=== PATIENT | female | born 1985 | race Asian ===

== ENCOUNTER → 2019-07-03 08:04 | Outpatient (BNVA) | payer BC, SELFPAY | PROVIDERS: Visit Provider Obstetrics & Gynecology | DX: Z34.90 Encounter for supervision of normal pregnancy, unspecified, unspecified trimester (principal) | CPT/HCPCS: 84315; 87081 ==

== ENCOUNTER → 2019-07-10 08:39 | Outpatient (BNVA) | payer BC, SELFPAY | PROVIDERS: Visit Provider Obstetrics & Gynecology | DX: Z01.89 Encounter for other specified special examinations (principal) | CPT/HCPCS: 84315 ==

== ENCOUNTER → 2019-07-17 10:04 | Outpatient (BNVA) | payer BC, SELFPAY | PROVIDERS: Visit Provider Obstetrics & Gynecology | DX: Z01.89 Encounter for other specified special examinations (principal) | CPT/HCPCS: 84315 ==

== ENCOUNTER 2019-07-19 02:08 | Inpatient (IN) | payer BC, SELFPAY ==
[2019-07-19] VITALS (58 sets, daily range): BP systolic 0–164; BP diastolic 0–92; PULSE 88–124; RESP 16–18; TEMP 36.3–36.9; O2SAT 97–100; BMI 46.7
--- NOTE | 2019-07-19 02:25 | PC.NURSE ---
MD at bedside to assess patient, updated on vitals. MD orders CMP and urine protein/creatinine ratio.
--- NOTE | 2019-07-19 02:42 | P.HP_ITS ---
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 Presents to labor and delivery with uterine contractions states she had onset of irregular uterine contractions afternoon of 07/18/2019 contractions became regular strong approximately every 4 minutes at approximately 2200 hrs. 07/18/2019. Presents to labor and delivery with strong uterine contractions by palpation every 3 to 4 minutes category 1 tracing. This has been uncomplicated she did conceived via IUI. She did have some anemia was treated with ferrous sulfate 325 3 times daily. No other medical issues has had excessive weight gain of approximately 55 pounds. She denies any headaches visual changes right upper quadrant and midepigastric pain she has had some swelling in her lower extremities left greater than right. Group B strep is negative Abnormal 1 hour GTT and first trimester 3-hour GTT was normal at 28 weeks her 1 hour GTT was 120 hemoglobin 12.4 hematocrit 40.6 Blood type O+ antibody screen was negative Review of Systems General: Reports: 10 or more systems reviewed and unremarkable except in HPI and below Const: Denies: fever, chills or body aches Eyes: Denies: change in vision Card: Reports: swelling of feet/ankles; Denies: chest pain, palpitations or irregular heart rhythm Resp: Denies: shortness of breath or non-productive cough GI: Reports: abdominal pain (Uterine contractions every 4 minutes); Denies: nausea or vomiting : Denies: flank pain, difficulty urinating, urinary frequency, urinary urgency or decreased urine ouput Musc: Reports: extremity swelling; Denies: back pain or extremity pain Skin/Breast: Denies: rash Neuro: Denies: headache Psych: Denies: anxiety or depression Endo: Denies: excessive urination or excessive thirst Bhavin/Lymph: Denies: easy bruising or easy bleeding Medications/Allergies Allergies Allergy/AdvReac Type Severity Reaction Status Date / Time No Known Allergies Allergy Unverified 06/19/19 08:09 [facility] 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 Morbidly obese gravid female Skin without rashes unremarkable HEENT grossly normal Neck no masses Lungs clear to auscultation Heart regular sinus rhythm Abdomen obese gravid palpable uterine contractions moderate to strong. Baby is vertex by Tuan's estimated weight 8 and three-quarter pounds Pelvic examination: Deferred by me cervical exam per labor nurse 80%/4/0 station/vertex bulging membranes Extremities grossly intact mild tibial edema, left greater than right Neurologic exam ambulatory gait normal patella DTR 2/4 no clonus Psych oriented to time space and circumstance A&P Assessment and plan (1) Term : Status: Acute Code(s): Z34.90 - Encounter for supervision of normal , unspecified, unspecified trimester (2) Uterine contractions: G1 at 39+ weeks admitted in early labor at 4 cm dilated uterine contractions described as strong every 4 minutes. Will admit for expected vaginal delivery patient did have 1 isolated systolic blood pressure in the 160s we will watch her blood pressure closely check her CBC metabolic profile and urine protein/creatinine ratio discussed with patient that should her blood pressure remained elevated may require intervention for same. As long as her blood pressure is unremarkable and reassuring tracing we will allow intermittent monitoring and ambulation. Discussed aspects of labor and delivery understands cannot guarantee outcome patient does desire cord blood and tissue collection will attempt to do so. All questions have been answered patient has been counseled. Status: Acute (3) Morbid obesity: Status: Acute Code(s): E66.01 - Morbid (severe) obesity due to excess calories (4) Infertility: Status: Acute Attestations Medical Necessity Statement*: Labor term Coding Level of Care Code Acute Senior Management Consultant for Chg Fwd Diagnoses Term Z34.90 Uterine contractions Morbid obesity E66.01 Infertility
--- NOTE | 2019-07-19 03:03 | PC.NURSE ---
Dr. Pandya at bedside to place FSE.
--- NOTE | 2019-07-19 03:06 | PC.NURSE ---
patient turned to hands and knees due to FHTs
--- NOTE | 2019-07-19 03:07 | PC.NURSE ---
MD orders for 0.25mg of Terbutaline be given subq STAT
--- NOTE | 2019-07-19 03:08 | PC.NURSE ---
called c/s due to FHTs
--- NOTE | 2019-07-19 03:09 | PC.NURSE ---
Wilfredo Schneider notified of stat c/s being called by Dr. Pandya
[2019-07-19 03:11] LABS: Basophils % 0.3 %; Eosinophils # 0.1 10^3/uL (0.0-0.8); Eosinophils % 0.9 %; Hematocrit 39.8 % (37.0-47.0); Hemoglobin 12.8 g/dL (11.5-15.3); Lymphocytes # 1.9 10^3/uL (0.8-4.8); Lymphocytes % 15.6 %; Mean Corpuscular HGB Conc 32.2 g/dL (30.0-36.0); Mean Corpuscular Hemoglobin 24.5 pg (28.0-34.0); Mean Corpuscular Volume 76.1 fL (81-99); Mean Platelet Volume 9.6 fL (7.4-10.4); Monocytes # 0.7 10^3/uL (0.2-0.9); Neutrophils # 9.1 10^3/uL (1.8-7.7); Neutrophils % 76.6 %; Nucleated Red Blood Cells % 0 %; Platelet Count 311 10^3/cmm (130-400); Red Blood Count 5.23 10^6/uL (4.1-5.3); Red Cell Distribution Width 15.6 % (12.1-15.1); White Blood Count 11.9 10^3/uL (4.0-10.0)
--- NOTE | 2019-07-19 03:11 | PC.NURSE ---
0.25mg Terbutaline given subq in left upper arm by Purnima Goodwin RN. Verified with MD and second RN Jeanne Veliz RN
[2019-07-19 03:27] LABS: Alanine Aminotransferase < 5 U/L (0-33); Albumin Level 3.1 g/dL (3.5-5.2); Alkaline Phosphatase 124 IU/L (35-105); Anion Gap 18.9 (5-19); Aspartate Amino Transferase 10 U/L (0-32); Blood Urea Nitrogen 7 mg/dL (6-20); Calcium 9.3 mg/dL (8.5-10.5); Carbon Dioxide 20 mmol/L (22-29); Chloride 99 mmol/L (98-107); Globulin 3.4 g/dL (1.3-4.6); Glucose 106 mg/dL (65-115); Potassium 3.9 mmol/L (3.5-5.1); Sodium 134 mmol/L (136-145); Total Bilirubin 0.3 mg/dL (0.15-1.2); Total Protein 6.5 g/dL (6.6-8.7)
--- NOTE | 2019-07-19 03:30 | PC.NURSE ---
O2 removed at this time
--- NOTE | 2019-07-19 03:30 | PC.NURSE ---
Decelertion occured during FSE palcement by Dr. Pandya, FHTs noted to be in the 50's and 60's, IV fluids then hung and bolused, O2 applied via tight facemask at 10L/min. patient was repositioned to hands and knees and order was given by Dr. Pandya to give terbutaline 0.25mg subq STAT. Terbutaline was given at 0311 and abdomen soft to palpate. FHts then noted to be in the 140's.
[2019-07-19 03:49] LABS: Creatinine Urine, Random 51 mg/dL (28-217); Microalbumin Random Urine 10 ug/dL (0-20)
[2019-07-19 03:51] LABS: Microalbum Creatinine Ratio Ur 196 mg/dL (0-20)
--- NOTE | 2019-07-19 04:25 | PM.OBGYPN ---
SOCCER PLAYER Subjective Subjective: Interval history: decel/bradycardia Patient had spontaneous rupture of membranes clear fluid. Due to patient's body habitus unable to monitor heart rate with patient on left side. Asked by nursing service to apply a scalp lead. Scalp lead was applied followed by decrease in heart rate to a low point of 50s total deceleration approximately 2 minutes patient was laying on left side rapidly removed to the right side and then placed in knee-chest position. Given O2 by mask and IV fluid bolus. Due to the depth of the bradycardia to the 50s terbutaline 0.25 mg was given and and with patient in knee-chest presentation the head was elevated. Cervix was complete in 4 to time. Rapid response to subcutaneous terbutaline resulted in elevation heart rate into the 120s with excellent recovery good [id number] and good reactivity. Patient was kept in knee-chest position for approximately 20 minutes to allow good recovery. Then slowly turned back to right lateral position doing well at this time at this time heart rate is category 1 with baseline 135. Patient's uterine contractions have resumed with no further decelerations. We will continue to labor Medications: Medication Review Details: terbutaline 0.25 mg subq Labor: Dilation (cm): 4 Effacement (%): 100 Station: -2 Amniotic Membrane Status: Ruptured Contraction Frequency: 4 Contraction Duration: 60 Contraction Pattern: Regular Contraction Intensity: Moderate Status: Category ll Vitals/I&O/Wt Last Vital Signs Pulse 98 07/19/19 04:17 BP 137/67 07/19/19 04:17 Weight last 48 hrs Weight 131.995 kg Data : 07/19/19 02:45 07/19/19 02:45 Attestations Medical Necessity Statement*: no change Coding Level of Care Code Acute Department Store Manager for Shelia Schuler
--- NOTE | 2019-07-19 04:35 | P.ANESASSM_ITS ---
Pre-Anesthetic Assessment Pre-Anesthetic Assessment: Height/Weight: Height 1.68 m Weight 131.995 kg Pulse BP 98 0/0 07/19/19 04:17 07/19/19 04:31 Proposed Procedure: lumbar epidural Familial anesthetic complications: none Was Beta Joanna taken within 24 hours: N/A Last Intake: 20:00 Social: Social History: No alcohol Exam: Pre-Anes Outpt Exam: alert, oriented x 3, clear to auscultation bilaterally and regular rate & rhythm Airway: Submandibular: WNL Cervical ROM: WNL MP: 2 Pulmonary: Pulmonary: None reported CV/HEM: CV/HEM: None reported : : None reported Hepatic: Hepatic: None reported GI: GI: GERD (controlled with protonix) Metabolic: Metabolic: Morbid obesity Musc/skel: Musc/skel: None reported Neuropsych: Neuropsych: None reported Anesthetic Plan: ASA status: 3 Anesthesia: Regional (specify below) (lumbar epidural catheter ) Risk of > 500 ml blood loss (7ml/kg in children): No Data Anesthesia CBC & Chem 7: 07/19/19 02:45 07/19/19 02:45 Other Labs: Laboratory Results - last 48 hr 07/19/19 07/19/19 07/19/19 02:45 02:45 02:45 WBC 11.9 H RBC 5.23 Hgb 12.8 Hct 39.8 MCV 76.1 L MCH 24.5 L MCHC 32.2 RDW 15.6 H Plt Count 311 MPV 9.6 Neut % (Auto) 76.6 Lymph % (Auto) 15.6 [place] % (Auto) 6.0 Eos % (Auto) 0.9 Baso % (Auto) 0.3 Neut # (Auto) 9.1 H Lymph # (Auto) 1.9 [place] # (Auto) 0.7 Eos # (Auto) 0.1 Baso # (Auto) 0.0 Nucleated RBC % (auto) 0 Nucleated RBCs # 0.0 Sodium 134 L Potassium 3.9 Chloride 99 Carbon Dioxide 20 L Anion Gap 18.9 BUN 7 Creatinine 0.4 L GFR Calculation 185.0 H Glucose 106 Calcium 9.3 Total Bilirubin 0.3 AST 10 ALT < 5 Alkaline Phosphatase 124 H Total Protein 6.5 L Albumin 3.1 L Globulin 3.4 Ur Random Microalbumin 10 Urine Creatinine 51 Microalb/Creat Ratio 196 H Cardiac Studies: No Data to Display
--- NOTE | 2019-07-19 05:30 | ANES.PROC ---
Anesthesia Procedures Procedure/Date: 07/19/19 lumbar epidural Epidural: Time Out Performed: Yes Consents Signed: Procedure Consent Consent: from patient, risks and benefits reviewed and patient agrees to proceed Lumbar Level: L3-L4 Epidural position: sitting Epidural procedure: sterile prep of area, 1% lidocaine to numb the area (5cc), 18 g needle, negative for paresthesia passed, neg for paresthesia, test dose given, 1.5% xylocaine 1:200k epi (3cc), 0.2% Ropivacaine bolus ml (5cc via epidural pump prior to continous infusion beginning), placed PCEA, no systemic response, sterile dressing applied, L.U.D. no apparent complications and 0.2% Ropiavacaine @ mls/hr (13cc/hr) Additional Comments: PIOTR at 7cm. catheter 12cm at skin. no complications. patient is comfortable with contractions
[2019-07-19] MEDS: lactated ringers 1,000 ML 999 ML IV ×4 (05:31→17:05)
[2019-07-19 05:37] LABS: Urine Creatinine 51 mg/dL (28-217)
[2019-07-19 05:38] LABS: UPRO/UCREAT Ratio 0.57 mg/mg CR; Urine Protein Random 29 mg/dL
[2019-07-19] MEDS: dextrose 5%-lactated ringers 1,000 ML 125 ML IV ×2 (07:00→18:43)
--- NOTE | 2019-07-19 07:39 | PC.NURSE ---
new FSE ground pad placed and heart tones back to 140's
[2019-07-19] MEDS: terbutaline 1 mg/mL INJ 0.25 MG SUBCUT ×2 (07:59→08:17)
[2019-07-19] MEDS: metoclopramide 5 mg/mL SDV 2 mL 10 MG IVP (08:28)
[2019-07-19] MEDS: famotidine 20 mg/2 mL INJ IVP (08:28)
[2019-07-19] MEDS: citric acid-sodium citrate 30 mL UDC PO (08:28)
[2019-07-19] MEDS: ondansetron 2 mg/ML SDV 2 mL 4 MG IVP (08:28)
--- NOTE | 2019-07-19 10:02 | PM.OP ---
Operative Report Date of procedure: July 19, 2019 Pre-op Diagnosis: Intrauterine at term Pre-op Diagnosis: Intrauterine term Nonreassuring heart rate tracing Arrest of dilation Maternal obesity Post-op diagnosis: same (Same plus occiput posterior presentation) Post-op Diagnosis: Occiput posterior presentation Nuchal cord x2 Procedure Done: Viable female Apgars 9 9 delivered from straight OP presentation in the mid pelvis. Nuchal cord x2. Specimens removed/disposition: Placenta and membranes removed from uterus Pathology: none sent Surgeon: Jasper Pandya Hopper Attendant: Rigoberto Girard Anesthesia: Epidural Estimated blood loss (mL): 600 IV fluids (mL): 1,200 Urine output (mL): 200 Urine output: Urine output clear Complications: None Findings: Normal-looking uterus tubes and ovaries. delivered from occiput posterior position mid pelvis Nuchal cord x2 Condition: stable Disposition: floor Brief History: 34-year-old G1 now P1 lady admitted in early labor at 4 cm agnes every 4 minutes initially category 1 tracing. Early in her stage I of labor she did have a brief deceleration approximately 2 minutes down to 60s/70s recovered with position change to knee-chest and subcu terbutaline. Tracing then reactive category 1 allowed to labor progressed to approximately 8 cm with epidural anesthesia and approximately 8 cm had another bradycardic episode to 70s/80s with position changes had recovery. And was allowed to continue labor. Unfortunately after approximately 3 hours she had another significant deceleration down to the 50s 60s with recovery up to 60s/70s still 8 cm dilated and upon my examination was vertex was still in the mid pelvis with moderate It. Given subcu terbutaline and position changes. Unfortunately due to her epidural could not go any chest satiated then was kept prone in Trendelenburg with recovery of the heart rate to the 130s 140s good variability At this point she had had 3 total bradycardic episodes to somewhat significant and had not changed her cervix from 8 cm in over 3 hours. I did discuss above with patient and her my recommendations were that we proceed immediately with section as best possible outcome for baby mom and dad did agree permits were signed and he OR crew contacted. Procedure: Patient had been a counseled. She was then taken to the operating room just off the labor and delivery suite transferred the operating table left lateral tilt epidural was dosed with continuous monitoring via scalp lead after appropriate level of anesthesia was achieved scalp lead was removed. Garnica catheter was in place sequentials were on abdomen was prepped and draped. Timeout was performed. Patient received Ancef 2 g IV and after timeout was performed transverse incision was made in the lower abdomen carried down through the subcutaneous tissue fascia was nicked in the midline and extended bluntly. Vascular decisionally the peritoneum was then opened bluntly and extended the bladder blade retractor was placed and the vesicouterine peritoneum identified transverse incision was made transverse lower uterine segment incision was then scored in the uterus and extended bluntly. Placenta was anterior and required going through the lower portion of the placenta. We were however able to place the precipitator operator's hand into the lower uterine segment/vagina and was able to extract the vertex from an OP position the mid pelvis. With delivery of the head there is nuchal cord x2 reduced. Baby was then delivered with fundal pressure and delayed cord clamping of 1 minute obtained the baby underwent suctioning on the field. Cord clamped and cut and handed off to attendant pediatric provider. Cord bloods were obtained cord blood banking attempted unsuccessful length the cord was sent for tissue at parents request. Placenta was removed from the uterus uterus was brought to the exterior wiped clean of clot and debris. Lower uterine segment was then repaired in 2 layers with 0 Vicryl with a running locking stitch and imbricating stitch. [id number] 2-0 Vicryl placed as necessary. Pelvis was irrigated uterus was replaced pelvic gutters were irrigated lower uterine segment was inspected and was hemostatic. At this point time further irrigation was performed peritoneum was then closed with running 2-0 Vicryl. Fascia closed with a running 0 Vicryl. The subcu/Imelda's fascia closed with 2-0 Vicryl. Skin was then infiltrated with mixture 1% lidocaine and 0.5% Marcaine with epi skin was closed with too dry sterile dressing was applied. Vagina was expressed cleaned of clot. Procedure was then terminated patient was transferred preoperatively to [facility] underwent initial recovery in the OR under nurse anesthesia guidance. Was then taken to the floor for care. No complications anticipate discharge home 8 POD 2 or early POD 3. We will plan staple removal in the office in 7 days.
--- NOTE | 2019-07-19 10:14 | P.PCNOB_ITS ---
Delivery Note: Date of delivery: July 19, 2019 Estimated blood loss (mL): 600 Pre-Delivery Course: Patient had recurrent bradycardic episodes and arrested dilation for 3+ hours to 8 cm at that time she had another bradycardic episode for 9 minutes recovered was taken to the OR for See dictated note. Delivery: Primary low transverse Post-Delivery Status: To the floor stable A&P Assessment and plan (1) Term : Status: Acute Code(s): Z34.90 - Encounter for supervision of normal , unspecified, unspecified trimester (2) Uterine contractions: Status: Acute (3) Morbid obesity: Status: Acute Code(s): E66.01 - Morbid (severe) obesity due to excess calories (4) Infertility: Status: Acute Coding Level of Care Code Acute Strip Mine Supervisor for Chg Fwd Diagnoses Term Z34.90 Uterine contractions Morbid obesity E66.01 Infertility
[2019-07-19] MEDS: sodium chloride 0.9% 500 ML 999 ML IV (16:40)
[2019-07-19] MEDS: acetaminophen 325 mg Tablet 650 MG PO ×2 (16:53→21:30)
[2019-07-19] MEDS: ketorolac 30 mg/mL INJ IVP ×2 (16:53→21:30)
[2019-07-19] MEDS: miSOPROStol 200 mcg Tablet 800 MCG PR (16:54)
[2019-07-19] MEDS: ferrous sulfate EC 325 mg Tablet PO (18:43)
[2019-07-19] MEDS: docusate sodium 100 mg Capsule PO (18:43)
[2019-07-19 22:00] LABS: Hematocrit 30.2 % (37.0-47.0); Hemoglobin 9.7 g/dL (11.5-15.3); Mean Corpuscular HGB Conc 32.1 g/dL (30.0-36.0); Mean Corpuscular Hemoglobin 24.9 pg (28.0-34.0); Mean Corpuscular Volume 77.4 fL (81-99); Mean Platelet Volume 9.4 fL (7.4-10.4); Platelet Count 230 10^3/cmm (130-400); Red Cell Distribution Width 15.8 % (12.1-15.1); White Blood Count 11.1 10^3/uL (4.0-10.0)
[2019-07-20] MEDS: dextrose 5%-lactated ringers 1,000 ML 125 ML IV (03:09)
[2019-07-20] MEDS: acetaminophen 325 mg Tablet 650 MG PO ×4 (05:22→22:28)
[2019-07-20] MEDS: ketorolac 30 mg/mL INJ IVP (05:22)
[2019-07-20 06:04] VITALS: BP 118/72; PULSE 100; RESP 16
--- NOTE | 2019-07-20 07:56 | PC.NURSE ---
Updated Dr. Pandya on patient status. Orders received to discontinue carter and PIID IV. Patient may remove dressing when she gets up to shower this morning.
[2019-07-20] MEDS: docusate sodium 100 mg Capsule PO ×2 (08:36→17:15)
[2019-07-20] MEDS: prenatal vitamin Capsule 1 CAP PO (08:36)
[2019-07-20 11:06] VITALS: BP 123/72; PULSE 91; RESP 19; TEMP 36.7; O2SAT 98
--- NOTE | 2019-07-20 13:04 | PC.NURSE ---
Assisted patient with applying abdominal binder Dr. Pandya ordered.
--- NOTE | 2019-07-20 13:21 | P.PN_ITS ---
WELLNESS NURSE Subjective Labor: Dilation (cm): 4 Effacement (%): 100 Station: -1 Amniotic Membrane Status: Ruptured Monitor Mode: External Contraction Frequency: 4 Contraction Pattern: Irregular Contraction Intensity: Mod erate Status: Category ll Vitals/I&O/Wt Last Vital Signs Temp 98.1 F 07/20/19 11:06 Pulse 91 07/20/19 11:06 Resp 19 H 07/20/19 11:06 BP 123/72 07/20/19 11:06 Pulse Ox 98 07/20/19 11:06 07/19/19 07/20/19 07/20/19 22:59 06:59 14:59 Intake Total 2500 / 2600 1000 / 3600 1545 / 1545 Output Total 550 / 900 1750 / 2650 400 / 400 Balance 1950 / 1700 -750 / 950 1145 / 1145 Weight last 48 hrs Weight 131.542 kg Weight 131.995 kg Physical Exam Narrative: EXAM NARRATIVE: Alert and oriented no acute distress Lungs clear to auscultation Heart regular sinus rhythm Abdomen soft nontender good bowel sounds uterus U- 1 firm incision intact, dry Extremities no edema no calf tenderness Urinary Catheter Management^: Garnica: Cath Placed During This Visit: yes, but has since been removed by the nurse Reason for Continuing Indwelling Catheter: Does Not Meet Criteria Urinary Catheter Date of Insertion: 07/19/19 Urinary Catheter Time of Insertion: 08:15 Date Urinary Catheter Removed: 07/20/19 Time Urinary Catheter Discontinued: 08:05 Data : 07/19/19 21:50 07/19/19 02:45 A&P Assessment and plan (1) Postop check: Status: Acute Code(s): Z09 - Encounter for follow-up examination after completed treatment for conditions other than malignant neoplasm Attestations Medical Necessity Statement*: Patient now postop day 1 status post will discharge postop day 2 Coding Level of Care Code Acute Security Expert for Shelia Schuler Diagnoses Postop check Z09
[2019-07-20] MEDS: ferrous sulfate EC 325 mg Tablet PO (17:15)
[2019-07-20 17:27] VITALS: BP 123/69; PULSE 90; RESP 17; O2SAT 98
[2019-07-20 22:20] VITALS: BP 128/59; PULSE 98; RESP 18; TEMP 36.7
[2019-07-21] MEDS: acetaminophen 325 mg Tablet 650 MG PO (07:23)
[2019-07-21] MEDS: prenatal vitamin Capsule 1 CAP PO (08:07)
[2019-07-21] MEDS: docusate sodium 100 mg Capsule PO (08:08)
--- NOTE | 2019-07-21 11:16 | PM.OBGYDC ---
Discharge Providers MARKETING AGENT Date of Admission: 07/19/19 02:08 Date of Discharge: 07/21/19 Attending Provider at Admission: Jasper Pandya DO Attending Provider at Discharge: Jasper Pandya DO Diagnoses at Discharge Discharge Diagnosis (1) Postop check: Status: Acute Problem details: Patient is day 1 status post for indications doing well. Advance care today discharge p.o. day 2 (2) S/P : Status: Acute Problem details: pt post emergency LTCS, doing well. discharge home too out in 1 week. Reason for Visit Reason for Visit: Reason For Visit: CONTRACTIONS Hospital Course Hospital Course: This young lady was admitted to labor and delivery in early active labor. During the first stage of labor she had a 2-minute bradycardic episode with nice recovery this was followed by another episode sometime later of approximately 6 minutes again with good recovery the terminal event for the was a 9-minute bradycardic episode down to the 50s with the baby in the mid pelvis. At that time patient was given subcu terbutaline IV fluids and taken to and after resuscitation with good recovery taken to the operating room to undergo low transverse for abnormal heart rate tracing. Surgery was uncomplicated patient did well patient and baby had excellent bonding on the floor patient was discharged home postop day 2. Plan follow-up in 1 week. Discharge Summary: See above patient is discharged home postop day 2 after normal post care doing well baby is doing well plan follow-up in 1 week. She will go home on Tylenol and ibuprofen for pain supplemented with oxycodone as needed instructed to maintain stool softeners increase activity as tolerated consider long-term contraception. Information Peripartum Data: Delivery Method: Section complications: none Physical Exam Urinary Catheter Management^: Garnica: Cath Placed During This Visit: yes, but has since been removed by the nurse Reason for Continuing Indwelling Catheter: Does Not Meet Criteria Urinary Catheter Date of Insertion: 07/19/19 Urinary Catheter Time of Insertion: 08:15 Date Urinary Catheter Removed: 07/20/19 Time Urinary Catheter Discontinued: 08:05 Discharge Data Vitals: Last Vital Signs Temp 98.0 F 07/20/19 22:20 Pulse 98 07/20/19 22:20 Resp 18 07/20/19 22:20 BP 128/59 07/20/19 22:20 Pulse Ox 98 07/20/19 17:27 Discharge Plan Discharge Patient Disposition: Home, Self-Care Condition: Stable Prescriptions: New ibuprofen 800 mg tablet 800 mg PO Q8H PRN (Reason: pain) Qty: 30 RF: 0 oxycodone 5 mg tablet 5 mg PO Q6H MDD 6 PRN (Reason: pain (scale score 7-10)) Qty: 30 RF: 0 Continued pantoprazole 40 mg tablet,delayed release (DR/EC) 40 mg PO DAILY RF: 0 iron 325 mg (65 mg iron) Tablet 325 mg PO TID RF: 0 28 mg iron- 800 mcg Tablet 1 tab PO DAILY RF: 0 Discharge Orders: Discharge Order (Routine); Ordered 07/21/19 Ordered By: Jasper Pandya Other Ambulatory Orders: Acetaminophen (Routine) Timeframe: 2 Days Facility: [facility] - Location: Lab - Main Lab Ordered By: Jasper Pandya Referrals: Jasper Pandya DO [Physician] - 08/03/19 1:15 pm Discharge Diet: Advance as tolerated Discharge Activity: Increase activity as tolerated Patient Instructions: Section (DC), Your Emmons's Appearance (GEN), Caring for Your Baby (GEN), Your Baby (GEN), Jaundice in Newborns (GEN), Caring for Your Breastfed Baby (GEN), Jaundice (GEN), OB Discharge Report, OB Food/Drug Interaction Guide, OB Home Care, OB Proud Parent Packet Activity Restrictions/Additional Instructions: Your 6 week follow up will be scheduled at your 2 week appointment. Discharge Attestations MARKETING AGENT Time Spent in Discharge Care*: less than 30 min Coding Level of Care Code Acute Otr Owner Operator for Chg Fwd Diagnoses Postop check Z09 S/P Z98.891
--- NOTE | 2019-07-21 11:20 | P.DS_ITS ---
Discharge Providers SASH REPAIRER Date of Admission: 07/19/19 02:08 Date of Discharge: 07/21/19 Attending Provider at Admission: Jasper Pandya DO Attending Provider at Discharge: Jasper Pandya DO Diagnoses at Discharge Discharge Diagnosis (1) Postop check: Status: Acute Problem details: Patient is day 1 status post for indications doing well. Advance care today discharge p.o. day 2 (2) S/P : Status: Acute Problem details: pt post emergency LTCS, doing well. discharge home too out in 1 week. Reason for Visit Reason for Visit: Reason For Visit: CONTRACTIONS Hospital Course Hospital Course: This young lady was admitted to labor and delivery in early active labor. During the first stage of labor she had a 2-minute bradycardic episode with nice recovery this was followed by another episode sometime later of approximately 6 minutes again with good recovery the terminal event for the was a 9-minute bradycardic episode down to the 50s with the baby in the mid pelvis. At that time patient was given subcu terbutaline IV fluids and taken to and after resuscitation with good recovery taken to the operating room to undergo low transverse for abnormal heart rate tracing. Surgery was uncomplicated patient did well patient and baby had excellent bonding on the floor patient was discharged home postop day 2. Plan follow-up in 1 week. Information Peripartum Data: Infant Delivery Method: Section complications: none Physical Exam Narrative: EXAM NARRATIVE: Alert and oriented no acute distress laying in bed. Nursing her infant. Vital signs stable she is afebrile Skin without rashes. HEENT grossly normal Lungs clear to auscultation Heart regular sinus rhythm Abdomen obese soft nontender incision is clean dry intact no erythema Lower extremities show no calf tenderness. Urinary Catheter Management^: Garnica: Cath Placed During This Visit: yes, but has since been removed by the nurse Reason for Continuing Indwelling Catheter: Does Not Meet Criteria Urinary Catheter Date of Insertion: 07/19/19 Urinary Catheter Time of Insertion: 08:15 Date Urinary Catheter Removed: 07/20/19 Time Urinary Catheter Discontinued: 08:05 Discharge Data Vitals: Last Vital Signs Temp 98.0 F 07/20/19 22:20 Pulse 98 07/20/19 22:20 Resp 18 07/20/19 22:20 BP 128/59 07/20/19 22:20 Pulse Ox 98 07/20/19 17:27 Discharge Plan Discharge Patient Disposition: Home, Self-Care Condition: Stable Prescriptions: New oxycodone 5 mg tablet 5 mg PO Q6H MDD 6 PRN (Reason: pain (scale score 7-10)) Qty: 30 RF: 0 ibuprofen 800 mg tablet 800 mg PO Q8H PRN (Reason: pain) Qty: 30 RF: 0 Continued pantoprazole 40 mg tablet,delayed release (DR/EC) 40 mg PO DAILY RF: 0 iron 325 mg (65 mg iron) Tablet 325 mg PO TID RF: 0 28 mg iron- 800 mcg Tablet 1 tab PO DAILY RF: 0 Discharge Orders: Discharge Order (Routine); Ordered 07/21/19 Ordered By: Jasper Pandya Discharge Diet: Advance as tolerated Discharge Activity: Increase activity as tolerated Discharge Attestations SASH REPAIRER Time Spent in Discharge Care*: greater than 30 min Coding Level of Care Code Acute Pinion And Wheel Truer for Altheag Fwd Diagnoses Postop check Z09 S/P Z98.891
[2019-07-21 12:55] VITALS: BP 129/73; PULSE 115; RESP 20; TEMP 37.1; O2SAT 97
== END 2019-07-21 14:30 | disposition home or self-care (01) | DRG 788 ==
LOC: OBGYN 04:42
PROVIDERS: Admitting Provider Obstetrics & Gynecology Female Pelvic Medicine and Reconstructive Surgery; Visit Provider Obstetrics & Gynecology Female Pelvic Medicine and Reconstructive Surgery
PROC: 10D00Z1 Extraction of Products of Conception, Low, Open Approach (ICD-10-PCS; CPT 59514; principal; 2019-07-19 08:30)
DX: O99.89 Other specified diseases and conditions complicating pregnancy, childbirth and the puerperium (principal); R00.1 Bradycardia, unspecified; Z37.0 Single live birth; O99.214 Obesity complicating childbirth; Z3A.39 39 weeks gestation of pregnancy; O90.81 Anemia of the puerperium; D64.9 Anemia, unspecified; O69.81X0 Labor and delivery complicated by cord around neck, without compression, not applicable or unspecified; O62.1 Secondary uterine inertia
CPT/HCPCS: 12345; 36415; 51702; 59409; 80053; 82044; 82570; 84156; 85025; 85027; 96360; 96361; 96372; 96375; 98960; J0690; J1885; J2001; J2274; J2405; J2590; J2765; J2795; J3105; J3490; J7030; J7040

== ENCOUNTER → 2020-10-25 08:39 | Outpatient (BNVA) | payer OTHER, SELFPAY | PROVIDERS: Visit Provider Obstetrics & Gynecology | DX: Z32.01 Encounter for pregnancy test, result positive (principal) | CPT/HCPCS: 81025 ==

== ENCOUNTER → 2020-11-09 13:25 | Outpatient (BNVA) | payer OTHER, SELFPAY | PROVIDERS: Visit Provider Nurse Practitioner Women's Health | DX: O09.899 Supervision of other high risk pregnancies, unspecified trimester (principal); K21.9 Gastro-esophageal reflux disease without esophagitis; E28.2 Polycystic ovarian syndrome; O34.219 Maternal care for unspecified type scar from previous cesarean delivery; O99.212 Obesity complicating pregnancy, second trimester | CPT/HCPCS: 81000 ==

== ENCOUNTER → 2020-11-30 10:06 | Outpatient (BNVA) | payer OTHER, SELFPAY | PROVIDERS: Visit Provider Obstetrics & Gynecology | DX: O99.212 Obesity complicating pregnancy, second trimester (principal) | CPT/HCPCS: 80307; 82950; 84315; 84443; 85027; 86592; 86762; 86803; 86850; 86900; 87086; 87340; 87806 ==

== ENCOUNTER → 2020-12-20 12:21 | Outpatient (BNVA) | payer OTHER, SELFPAY | PROVIDERS: Visit Provider Obstetrics & Gynecology | DX: O09.899 Supervision of other high risk pregnancies, unspecified trimester (principal) | CPT/HCPCS: 84315; 87491; 87591 ==

== ENCOUNTER → 2021-02-15 15:09 | Outpatient (BNVA) | payer OTHER, SELFPAY | PROVIDERS: Visit Provider Obstetrics & Gynecology | DX: O09.899 Supervision of other high risk pregnancies, unspecified trimester (principal); D47.3 Essential (hemorrhagic) thrombocythemia | CPT/HCPCS: 84315; 85025 ==

== ENCOUNTER → 2021-03-08 10:00 | Outpatient (BNVA) | payer OTHER, SELFPAY | PROVIDERS: Visit Provider Nurse Practitioner Women's Health | DX: O99.212 Obesity complicating pregnancy, second trimester (principal); K21.9 Gastro-esophageal reflux disease without esophagitis; O36.60X0 Maternal care for excessive fetal growth, unspecified trimester, not applicable or unspecified; D47.3 Essential (hemorrhagic) thrombocythemia; O34.219 Maternal care for unspecified type scar from previous cesarean delivery; E28.2 Polycystic ovarian syndrome | CPT/HCPCS: 81000 ==

== ENCOUNTER → 2021-04-04 09:48 | Outpatient (BNVA) | payer OTHER, SELFPAY | PROVIDERS: Visit Provider Obstetrics & Gynecology | DX: O36.60X0 Maternal care for excessive fetal growth, unspecified trimester, not applicable or unspecified (principal); O99.019 Anemia complicating pregnancy, unspecified trimester; O99.212 Obesity complicating pregnancy, second trimester; O34.219 Maternal care for unspecified type scar from previous cesarean delivery; K21.9 Gastro-esophageal reflux disease without esophagitis; E28.2 Polycystic ovarian syndrome | CPT/HCPCS: 82950; 84315; 85025 ==

== ENCOUNTER → 2021-05-29 10:18 | Outpatient (BNVA) | payer OTHER, SELFPAY | PROVIDERS: Visit Provider Obstetrics & Gynecology | DX: O36.63X0 Maternal care for excessive fetal growth, third trimester, not applicable or unspecified (principal) | CPT/HCPCS: 76816 ==

== ENCOUNTER → 2021-05-30 10:10 | Outpatient (BNVA) | payer OTHER, SELFPAY | PROVIDERS: Visit Provider Nurse Practitioner Women's Health | DX: O09.899 Supervision of other high risk pregnancies, unspecified trimester (principal) | CPT/HCPCS: 84315; 87081 ==

== ENCOUNTER → 2021-06-06 08:11 | Outpatient (BNVA) | payer OTHER, SELFPAY | PROVIDERS: Visit Provider Obstetrics & Gynecology | DX: O09.899 Supervision of other high risk pregnancies, unspecified trimester (principal) | CPT/HCPCS: 81000 ==

== ENCOUNTER 2021-06-14 19:17 | Inpatient (IN) | payer OTHER, SELFPAY ==
[2021-06-14] VITALS (19 sets, daily range): BP systolic 109–138; BP diastolic 46–86; PULSE 86–120; RESP 16–18; TEMP 36.2–37.1; O2SAT 91–99; BMI 44.6
[2021-06-14] MEDS: lactated ringers 1,000 ML 999 ML IV ×2 (17:53→19:40)
[2021-06-14 18:34] LABS: Bacteria Urine 1+ /hpf; Bilirubin Urine Neg (Negative); Blood Urine 2+ (Negative); Glucose Urine UA Norm (Normal); Ketones Urine 2+ (Negative); Leukocyte Esterase Urine Trace (Negative); Nitrate Urine Negative (Negative); Protein Urine Neg (Negative); RBC Urine 0-4 /hpf (0-2); Specific Gravity, Urine 1.015 (1.005-1.030); Squamous Epithelial Cell Urine 25-40 /hpf (0-5); Urine Appearance Cloudy (CLEAR); Urine Color Yellow (Yellow); Urobilinogen Urine Norm (Negative); WBC Urine 0-4 /hpf (0-5); pH Urine 7 (5-7)
[2021-06-14] MEDS: famotidine 20 mg/2 mL INJ IVP (19:28)
[2021-06-14] MEDS: citric acid-sodium citrate 30 mL UDC PO (19:28)
[2021-06-14] MEDS: metoclopramide 5 mg/mL SDV 2 mL 10 MG IVP (19:28)
[2021-06-14 19:36] LABS: Adenovirus Not Detected (NOT DETECT); Chlamydia Pneumoniae Not Detected (NOT DETECT); Coronavirus 229E,HKU1,NL63,OC4 Not Detected (NOT DETECT); Human Metapneumovirus Not Detected (NOT DETECT); Human Rhinovirus/Enterovirus Not Detected (NOT DETECT); Influenza A Not Detected (NOT DETECT); Influenza A H1 Not Detected (NOT DETECT); Influenza A H1-2009 Not Detected (NOT DETECT); Influenza A H3 Not Detected (NOT DETECT); Influenza B Not Detected (NOT DETECT); Mycoplasma Pneumoniae Not Detected (NOT DETECT); Parainfluenza Virus Type 1 Not Detected (NOT DETECT); Parainfluenza Virus Type 2 Not Detected (NOT DETECT); Parainfluenza Virus Type 3 Not Detected (NOT DETECT); Parainfluenza Virus Type 4 Not Detected (NOT DETECT); Respiratory Syncytial Virus A Not Detected (NOT DETECT); Respiratory Syncytial Virus B Not Detected (NOT DETECT); SARS-COV-2 Detected (NOT DETECT)
--- NOTE | 2021-06-14 19:39 | PM.OPHPUD ---
Labor & Delivery H&P Update Date of Procedure: June 14, 2021 Date H&P Performed: 06/13/21 H&P update information: I have reviewed H&P completed within last 30 days, I have examined patient prior to procedure and Changes to prior documentation as noted here Changes to previous documentation: The patient presents to labor and delivery with contractions. She is a repeat . She made cervical change while she was in triage and continues to contract every 2-4 minutes. Admission Diagnosis: Preop diagnosis: Intrauterine at 38 weeks, 1 day Related Problem List Diagnoses (1) Breech presentation: (2) macrosomia affecting management of mother, antepartum: (3) Anemia affecting , antepartum: (4) Request for sterilization: (5) Supervision of other high-risk : (6) Obesity affecting : (7) Previous delivery affecting :
[2021-06-14 19:41] LABS: Basophils % 0.4 %; Eosinophils # 0.1 10^3/uL (0.0-0.8); Eosinophils % 0.8 %; Hematocrit 41.9 % (37.0-47.0); Hemoglobin 13.2 g/dL (11.5-15.3); Lymphocytes # 0.7 10^3/uL (0.8-4.8); Lymphocytes % 6.7 %; Mean Corpuscular HGB Conc 31.5 g/dL (30.0-36.0); Mean Corpuscular Hemoglobin 23.8 pg (28.0-34.0); Mean Corpuscular Volume 75.6 fl (81-99); Mean Platelet Volume 9.9 fL (7.4-10.4); Monocytes # 0.6 10^3/uL (0.2-0.9); Monocytes % 6.4 %; Neutrophils # 8.27 10^3/uL (1.8-7.7); Neutrophils % 85.1 %; Nucleated Red Blood Cells % 0 %; Platelet Count 329 10^3/cmm (130-400); Red Blood Count 5.54 10^6/uL (4.1-5.3); Red Cell Distribution Width 15.4 % (12.1-15.1); White Blood Count 9.7 10^3/uL (4.0-10.0)
--- NOTE | 2021-06-14 20:19 | ANES.PREANE2 ---
Pre-Anesthetic Assessment Pre-Anesthetic Assessment: Height/Weight: Height 1.65 m Weight 121.563 kg Temp Pulse BP 98.8 F 108 H 131/85 06/14/21 17:04 06/14/21 20:02 06/14/21 20:02 Preop Diagnosis: Intrauterine at 38 weeks, 1 day Proposed Procedure: c section Familial anesthetic complications: none Was Beta Joanna taken within 24 hours: N/A Was Clonidine taken within 24 hours: N/A Last Intake: 11:30 Social: Social History: No alcohol and No tobacco Exam: Pre-Anes Outpt Exam: alert, oriented x 3, clear to auscultation bilaterally and regular rate & rhythm Airway: Submandibular: WNL Cervical ROM: WNL MP: 2 Dentition: Full Pulmonary: Pulmonary: None reported Comments: covid + on screening. Pt with sore throat and congestion, No cough, SOB CV/HEM: CV/HEM: None reported : : None reported Hepatic: Hepatic: None reported GI: GI: GERD (with ) Metabolic: Metabolic: Morbid obesity Musc/skel: Musc/skel: None reported Neuropsych: Neuropsych: None reported Anesthetic Plan: ASA status: 2 Anesthesia: General and Regional (specify below) (SAB) PFSH Anesthesia PFSH: Medical History GERD (gastroesophageal reflux disease) Has had symptoms since 2018 and is currently on pantoprazole. Has not had an endoscopy. Infertility ---Reports a history of infertility and had to be on letrozole in 2019 when she got . Second was spontaneous. No pertinent past medical history Denies diabetes, asthma, hypertension, seizures, DVT/PE PCP: None PCOS (polycystic ovarian syndrome) Diagnosed at the age of 18 with irregular cycles and hirsutism. Has been on Metformin and pills in the past for contraception. Surgical History Hx of section 07/2019---emergency low transverse delivery for nonreassuring heart tracing and arrest of dilation by Dr. Pandya at [facility] [place] Family History Grandfather Diabetes maternal Heart disease Maternal Grandmother Hypertension Maternal Cancer Cervical cancer Mother Thyroid disease Denies family history of Colon cancer Hypercholesteremia Breast cancer Uterine cancer Stroke Female Reproductive History: : 2 Data Anesthesia CBC & Chem 7: 06/14/21 17:50 Other Labs: Laboratory Results - last 48 hr 06/14/21 06/14/21 06/14/21 17:30 17:40 17:50 WBC 9.7 RBC 5.54 H Hgb 13.2 Hct 41.9 MCV 75.6 L MCH 23.8 L MCHC 31.5 RDW 15.4 H Plt Count 329 MPV 9.9 Neut % (Auto) 85.1 Lymph % (Auto) 6.7 [place] % (Auto) 6.4 Eos % (Auto) 0.8 Baso % (Auto) 0.4 Neut # (Auto) 8.27 H Lymph # (Auto) 0.7 L [place] # (Auto) 0.6 Eos # (Auto) 0.1 Baso # (Auto) 0.0 Nucleated RBC % (auto) 0 Nucleated RBCs # 0.0 Urine Color Yellow Urine Appearance Cloudy Urine pH 7 Ur Specific [place] 1.015 Urine Protein Neg Urine Glucose (UA) Norm Urine Ketones 2+ H Urine Blood 2+ H Urine Nitrate Negative Urine Bilirubin Neg Urine Urobilinogen Norm Ur Leukocyte Esterase Trace H Urine RBC 0-4 H Urine WBC 0-4 H Ur Squamous Epith Cells 25-40 H Amorphous Sediment Not Reportable Urine Bacteria 1+ H Coronavirus 229E (PCR) Not detected SARS-CoV-2 (PCR) Detected A Cardiac Studies: No Data to Display
--- NOTE | 2021-06-14 22:27 | PM.OP ---
Operative Report Date of procedure: June 14, 2021 Pre-op Diagnosis: Intrauterine at 38w1d, active labor, desires sterilization Post-op diagnosis: same Post-op Findings: term female in the rashawn breech presentation Procedure Done: repeat , bilateral salpingectomy Specimens removed/disposition: bilateral fallopian tubes to pathology Anesthesia: Other (spinal) Estimated blood loss (mL): 150 IV fluids (mL): 1,500 Urine output (mL): 300 Complications: none Condition: stable Disposition: floor Brief History: The patient was scheduled for a repeat with tubal ligation at 39 weeks. She presented in active labor tonight. Procedure: The patient was taken to the operating room where spinal anesthesia was administered and found to be adequate. She was prepped and draped in the normal sterile fashion in the dorsal supine position with a leftward tilt. A Pfannenstiel skin incision was made and carried down to the underlying layer of fascia. The fascia was nicked in the midline and extended laterally with the Foley scissors. The fascia was then tented up and the rectus muscles dissected off sharply. The rectus muscles were and the peritoneum entered bluntly with the digit. The peritoneal incision was extended superiorly and inferiorly with good visualization of the bladder. The Corbin O retractor was placed. It was clear of any bowel or omentum. The bladder flap was created sharply with the Metzenbaum scissors. A low transverse uterine incision was made and carried down to the bag of water. The bag of water was ruptured and the uterine incision extended cephalocaudad. The breech was grasped and brought through the incision, followed by the shoulders and head. There was terminal meconium. The nose and mouth were bulb suctioned. The cord was clamped and cut. The baby was handed to the waiting boom operator. Cord blood and segments of cord were collected per patient request. These were placed into the provided kit. The placenta was delivered by expression. The uterus was exteriorized and cleared of all clots and debris. The uterine incision was closed with 0 Vicryl in a running fashion. A second imbricating layer of 3-0 Monocryl was used to close the uterus. The bladder flap was closed with 3-0 Monocryl. Attention was then turned to the tubal ligation portion of the surgery. The left fallopian tube was elevated and using the cautery device, the mesosalpinx was cauterized, cut and the tube removed. The procedure was performed the same way on the right. The fallopina tube was elevated and the cautery device was used to remove the fube. There was excellent hemostasis. The Corbin O retractor was removed. The uterus was returned to the abdomen. The peritoneum was closed with 3-0 Monocryl, incorporating the rectus muscle. The fascia was closed with 0 Vicryl in 2 separate sutures overlapping in the midline. The subcuticular layer was closed with 4-0 monocryl. The skin was closed with absorbable too. Apgars on baby 8 at 1 minute and 9 at 5 minutes. weight pounds 12 ounces. Mother and baby were stable post delivery.
[2021-06-15] VITALS (12 sets, daily range): BP systolic 101–124; BP diastolic 59–72; PULSE 82–110; RESP 16–17; TEMP 36.4–36.8; O2SAT 96–98
[2021-06-15] MEDS: dextrose 5%-lactated ringers 1,000 ML 125 ML IV (01:10)
[2021-06-15] MEDS: ketorolac 30 mg/mL INJ IVP ×2 (04:18→10:09)
[2021-06-15] MEDS: docusate sodium 100 mg Capsule PO ×2 (09:09→20:48)
[2021-06-15] MEDS: prenatal vitamin Capsule 1 CAP PO (09:09)
--- NOTE | 2021-06-15 11:21 | ANE.PACU2 ---
Inpatient post-anesthesia follow up: Airway intact: Yes Vital signs: Temperature 98.1 F Pulse Rate 90 Respiratory Rate 16 Blood Pressure 108/65 Pulse Oximetry 98 Oxygen Delivery Me thod Room Air Oxygen Flow Rate Fraction of Inspir ed Oxygen Hydration adequate: Yes Nausea and vomiting: No Mental status: Baseline Additional Comments: Receiving medications per OBGYN servicef or pain. Current pain score 7.
--- NOTE | 2021-06-15 13:31 | PM.PN ---
Vitals/I&O/Wt Last Vital Signs Temp 97.8 F 06/15/21 08:00 Pulse 97 06/15/21 08:00 Resp 16 06/15/21 08:00 BP 124/67 06/15/21 08:00 Pulse Ox 98 06/15/21 04:15 06/14/21 06/15/21 06/15/21 22:59 06:59 14:59 Intake Total 1560 / 1560 Output Total 750 / 750 400 / 1150 450 / 450 Balance 810 / 810 -400 / 410 -450 / -450 Weight last 48 hrs Weight 268 lb Physical Exam Narrative: EXAM NARRATIVE: The patient is doing well this morning. No concerns. Her pain is well controlled. She is not having any further covid symptoms. We discussed with the infusion center that she meets the criteria for infusion. The patient agrees to have it. We will arrange and infuse in her room. Const: COMMON NORMALS: no acute distress, patient oriented x3, no limitations, healthy appearing, alert and well nourished GENERAL APPEARANCE: cooperative, comfortable, well kempt and well developed ORIENTATION/CONSCIOUSNESS: Yes awake, Yes oriented to person and Yes oriented to place Resp: COMMON NORMALS: normal respiratory effort EFFORT & INSPECTION: Yes able to speak in complete sentences GI: COMMON NORMALS: Soft to palpation and non-tender PALPATION: Yes Soft to palpation Extremity: COMMON NORMALS: no calf tenderness Neuro: COMMON NORMALS: patient oriented x3 SENSORIUM/ORIENTATION: Yes alert, Yes oriented to person and Yes oriented to place Psych: APPEARANCE: Yes well kempt Skin: WOUNDS: Yes surgical site (clean/dry and covered.) Urinary Catheter Management^: Garnica: Cath Placed During This Visit: yes, but has since been removed by the nurse Reason for Continuing Indwelling Catheter: Decision to DC Catheter Urinary Catheter Date of Insertion: 06/14/21 Urinary Catheter Time of Insertion: 19:35 Date Urinary Catheter Removed: 06/15/21 Time Urinary Catheter Discontinued: 11:30 Data : 06/14/21 17:50 Attestations Medical Necessity Statement*: The patient had a . She will be here at least two nights. Coding Level of Care Code Acute Promotions Representative for Shelia Schuler
[2021-06-15] MEDS: ibuprofen 800 mg tablet PO ×2 (16:17→20:49)
[2021-06-15 16:49] LABS: Hematocrit 34.9 % (37.0-47.0); Hemoglobin 11.1 g/dL (11.5-15.3); Mean Corpuscular HGB Conc 31.8 g/dL (30.0-36.0); Mean Corpuscular Hemoglobin 24.6 pg (28.0-34.0); Mean Corpuscular Volume 77.4 fl (81-99); Mean Platelet Volume 9.5 fL (7.4-10.4); Platelet Count 274 10^3/cmm (130-400); Red Blood Count 4.51 10^6/uL (4.1-5.3); Red Cell Distribution Width 15.6 % (12.1-15.1); White Blood Count 8.2 10^3/uL (4.0-10.0)
--- NOTE | 2021-06-15 21:14 | PC.NURSE ---
this nurse assessed pt incision after pt shower. pt incision appreaded to have no oozing, this nurse showed pt what her incision looked like with a picture so pt could tell if there was any change from now on. slight unapproximation on the right side.
[2021-06-16] MEDS: acetaminophen 325 mg Tablet 650 MG PO (05:33)
[2021-06-16 05:35] VITALS: BP 105/66; PULSE 92; RESP 18; TEMP 36.9; O2SAT 96
[2021-06-16] MEDS: ferrous sulfate EC 325 mg Tablet PO (09:18)
[2021-06-16] MEDS: ibuprofen 800 mg tablet PO ×2 (09:19→14:28)
[2021-06-16] MEDS: docusate sodium 100 mg Capsule PO (09:19)
[2021-06-16] MEDS: prenatal vitamin Capsule 1 CAP PO (09:19)
[2021-06-16] MEDS: famotidine 20 mg Tablet 40 MG PO (09:21)
[2021-06-16 09:22] VITALS: BP 106/68; PULSE 93; RESP 18; TEMP 36.4; O2SAT 96
--- NOTE | 2021-06-16 12:33 | PM.DCS ---
Discharge Providers Date of Admission: 06/14/21 19:17 Date of Discharge: June 16, 2021 Attending Provider at Admission: Pattie Ely MD Attending Provider at Discharge: Pattie Ely MD Diagnoses at Discharge Discharge Diagnosis (1) Breech presentation: Status: Acute (2) macrosomia affecting management of mother, antepartum: Status: Acute (3) Anemia affecting , antepartum: Status: Acute (4) Request for sterilization: Status: Acute (5) Supervision of other high-risk : Status: Acute (6) Obesity affecting : Status: Acute Qualifiers: Trimester: second trimester Qualified Code(s): O99.212 - Obesity complicating , second trimester (7) Previous delivery affecting : Status: Acute Reason for Visit Reason for Visit: Contractions Hospital Course Hospital Course The patient was admitted in active labor. She had a repeat . She was also diagnosed with Covid preoperatively. ON PPD#1, she received monoclonal antibody therapy. She did well postoperatively and was ready for discharge on day #2 Physical Exam Narrative: EXAM NARRATIVE: doing well this morning. No concerns. Const: COMMON NORMALS: no acute distress, patient oriented x3, no limitations, alert and well nourished GENERAL APPEARANCE: cooperative, comfortable, well kempt and well developed ORIENTATION/CONSCIOUSNESS: Yes awake, Yes oriented to person, Yes oriented to place and Yes oriented to time Resp: COMMON NORMALS: normal respiratory effort EFFORT & INSPECTION: Yes able to speak in complete sentences GI: COMMON NORMALS: Soft to palpation and non-tender PALPATION: Yes Soft to palpation Extremity: COMMON NORMALS: no calf tenderness Neuro: COMMON NORMALS: patient oriented x3 SENSORIUM/ORIENTATION: Yes alert, Yes oriented to person, Yes oriented to place and Yes oriented to time Psych: APPEARANCE: Yes well kempt Skin: WOUNDS: Yes surgical site (clean/dry/intact) Urinary Catheter Management^: Garnica: Cath Placed During This Visit: yes, but has since been removed by the nurse Reason for Continuing Indwelling Catheter: Decision to DC Catheter Urinary Catheter Date of Insertion: 06/14/21 Urinary Catheter Time of Insertion: 19:35 Date Urinary Catheter Removed: 06/15/21 Time Urinary Catheter Discontinued: 11:30 Discharge Data Data Completed and Pending: Completed Studies During Hospitalization Category Date Time Status Pathology: Surgic al [PTH] Routine Pth 06/14/21 22:31 Completed Pending at discharge Category Date Time Status Urine Culture Rou nadir Lab 06/15/21 05:30 Received Labs from last 24 hours 06/15/21 11:45 WBC 8.2 RBC 4.51 Hgb 11.1 L Hct 34.9 L MCV 77.4 L MCH 24.6 L MCHC 31.8 RDW 15.6 H Plt Count 274 MPV 9.5 Vitals: Last Vital Signs Temp 97.6 F 06/16/21 09:22 Pulse 93 06/16/21 09:22 Resp 18 06/16/21 09:22 BP 106/68 06/16/21 09:22 Pulse Ox 96 06/16/21 09:22 Discharge Plan Discharge Patient Disposition: Home Condition: Stable Prescriptions: New ibuprofen 800 mg Tablet 800 mg PO TID Qty: 30 RF: 0 hydrocodone-acetaminophen 5-325 mg Tablet 1 tab PO Q4H PRN (Reason: Moderate To Severe Pain) Qty: 30 RF: 0 docusate sodium 100 mg Capsule 100 mg PO BID Qty: 60 RF: 0 Continued (DME) breast pump [Pump In Style Advanced] Device See Rx Instructions .MEDSUPPLY Qty: 1 RF: 0 Gummy 400 mcg-35 mg -25 mg-5 mg tablet,chewable PO RF: 0 pantoprazole 40 mg tablet,delayed release (DR/EC) 40 mg PO DAILY Qty: 30 RF: 6 ferrous sulfate [Iron (ferrous sulfate)] 325 mg (65 mg iron) tablet 650 mg PO BID RF: 0 acetaminophen 500 mg Capsule 1,000 mg PO PRN PRN (Reason: PAIN) RF: 0 Discharge Orders: Discharge Order (Routine); Ordered 06/16/21 Ordered By: Pattie Ely Patient Instructions: Opioid Safety Discharge Attestations Time Spent in Discharge Care*: less than 30 min Quality Metrics Clinical Quality Measures During this hospital stay, did patient experience: None Coding Level of Care Code Acute Chg FW DC note Diagnoses Breech presentation O32.1XX0 macrosomia affecting management of mother, antepartum O36.60X0 Anemia affecting , antepartum O99.019 Request for sterilization Z30.2 Supervision of other high-risk O09.899 Obesity affecting O99.212 Trimester: second trimester Previous delivery affecting O34.219
[2021-06-16 16:15] VITALS: BP 112/74; PULSE 88; RESP 16; TEMP 36.6; O2SAT 96
[2021-06-16 16:44] VITALS: BP 112/74; PULSE 88; RESP 16; TEMP 36.6; O2SAT 96
== END 2021-06-16 16:30 | disposition home or self-care (01) | DRG 783 ==
LOC: OPOB 19:19 → OBGYN 19:19
PROVIDERS: Admitting Provider Obstetrics & Gynecology; Visit Provider Obstetrics & Gynecology
PROC: 10D00Z1 Extraction of Products of Conception, Low, Open Approach (ICD-10-PCS; CPT 59514; principal; 2021-06-14 21:00)
DX: O34.219 Maternal care for unspecified type scar from previous cesarean delivery (principal); U07.1 COVID-19; O98.52 Other viral diseases complicating childbirth; Z3A.38 38 weeks gestation of pregnancy; Z37.0 Single live birth; O32.1XX0 Maternal care for breech presentation, not applicable or unspecified; O99.02 Anemia complicating childbirth; D64.9 Anemia, unspecified; O99.214 Obesity complicating childbirth; O77.0 Labor and delivery complicated by meconium in amniotic fluid; O36.63X0 Maternal care for excessive fetal growth, third trimester, not applicable or unspecified; Z30.2 Encounter for sterilization
CPT/HCPCS: 36415; 51702; 59025; 81001; 85025; 85027; 87086; 87635; 88302; 99211; J0690; J1885; J2274; J2405; J2765; J3490

== ENCOUNTER → 2021-07-25 12:19 | Outpatient (BNVA) | payer OTHER, SELFPAY | PROVIDERS: Visit Provider Obstetrics & Gynecology | DX: Z12.4 Encounter for screening for malignant neoplasm of cervix (principal); K21.9 Gastro-esophageal reflux disease without esophagitis; E28.2 Polycystic ovarian syndrome | CPT/HCPCS: 87624 ==

== ENCOUNTER 2022-06-13 07:49 | Day surgery (SDC) | payer OTHER, SELFPAY ==
[2022-06-08 09:35] VITALS: BMI 40.4
[2022-06-13 08:10] VITALS: BP 151/91; PULSE 86; RESP 18; O2SAT 97
[2022-06-13] MEDS: sodium chloride 0.9% 1,000 ML 30 ML IV (08:14)
--- NOTE | 2022-06-13 08:36 | W.PM.OPSUD ---
Surgery/Procedure H&P Update DATE OF PROCEDURE: June 13, 2022 DATE H&P PERFORMED: 05/22/22 PREOP DIAGNOSIS: Intrauterine at 38w1d, active labor, desires sterilization PLANNED PROCEDURE: Operation Date: 06/13/22 09:30 Proposed Procedures p EGD 99225,K21.9(Not Applicable) - Jah Ruiz DO
--- NOTE | 2022-06-13 08:37 | P.ANESASSM_ITS ---
Pre-Anesthetic Assessment Height/Weight: Height 1.65 m Weight 110.223 kg Pulse Resp BP Pulse Ox O2 Del Method 86 18 151/91 97 06/13/22 08:10 06/13/22 08:10 06/13/22 08:10 06/13/22 08:10 06/13/22 08:10 Preop Diagnosis: gerd Operation Date: 06/13/22 09:30 Proposed Procedures p EGD 03466,K21.9(Not Applicable) - Jah Ruiz DO Was Beta Joanna taken within 24 hours: N/A Was Clonidine taken within 24 hours: N/A Last intake: Intake Last Liquid Date 06/12/22 Last Liquid Time 21:30 Last Solid Date 06/12/22 Last Solid Time 21:30 Social No alcohol and No tobacco Exam alert, oriented x 3, clear to auscultation bilaterally and regular rate & rhythm Airway Submandibular: within normal limits Cervical ROM: within normal limits Mallampati: Class II History/ROS No significant history except as noted and No significant complaints Pulmonary None reported CV/HEM None reported None reported Hepatic None reported GI Gastroesophageal Reflux Disease Metabolic None reported Musc/skel None reported Neuropsych None reported Anesthetic Plan ASA status: 2 Anesthesia: Anesthesia Evaluation and MAC Risk of > 500 ml blood loss (7ml/kg in children): No Medications/Allergies Home Medications Medication Instructions Recorded Confirmed Last Taken Type multivitamin 1 tab PO DAILY 07/25/21 06/13/22 06/12/22 History pantoprazole 40 mg tablet,delayed 40 mg PO DAILY #30 tabs 06/12/22 06/13/22 06/11/22 Rx release Allergies Allergy/AdvReac Type Severity Reaction Status Date / Time No Known Allergies Allergy Verified 06/08/22 09:32 [facility] Anesthesia Medical History GERD (gastroesophageal reflux disease) Has had symptoms since 2018 and is currently on pantoprazole. Has not had an endoscopy. No pertinent past medical history Denies diabetes, asthma, hypertension, seizures, DVT/PE PCP: None PCOS (polycystic ovarian syndrome) Diagnosed at the age of 18 with irregular cycles and hirsutism. Has been on Metformin and pills in the past for contraception. Surgical History Hx of section x 2 07/2019---emergency low transverse delivery for nonreassuring heart tracing and arrest of dilation by Dr. Pandya at [facility] [place] 06/14/2021---repeat and bilateral total salpingectomy performed by Dr. Ely at [facility] [place] Status post tubal ligation 06/14/2021---bilateral total salpingectomy performed at time of repeat C- section by Dr. Ely at [facility] [place] Pathology showed----bilateral fallopian tubes full transection-no malignancy Family History Grandfather Diabetes maternal Heart disease Maternal Grandmother Hypertension Maternal Cancer Cervical cancer Mother Thyroid disease Denies family history of Colon cancer Hypercholesteremia Breast cancer Uterine cancer Stroke Social History Smoking and tobacco status: never smoked Female Reproductive History Date of last menstrual period: 08/10/20 Data Anesthesia Cardiac Studies: No Data to Display
[2022-06-13 09:16] VITALS: BP 122/82; PULSE 88; RESP 14; TEMP 36.1; O2SAT 95
[2022-06-13 09:27] VITALS: BP 110/82; PULSE 84; RESP 18; O2SAT 99
[2022-06-13 09:52] LABS: OR HCG Qualitative Urine Negative (Negative)
--- NOTE | 2022-06-13 17:34 | ANE.PACU2 ---
Inpatient post-anesthesia follow up: Airway intact: Yes Vital signs: Temperature 97.0 F Pulse Rate 84 Respiratory Rate 18 Blood Pressure 110/82 Pulse Oximetry 99 Oxygen Delivery Me thod Room Air Oxygen Flow Rate Fraction of Inspir ed Oxygen Hydration adequate: Yes Nausea and vomiting: No Pain level: 1 Mental status: Baseline
== END 2022-06-13 09:46 | disposition home or self-care (01) ==
PROVIDERS: Anesthesiology; Visit Provider Surgery
PROC: 0DJ08ZZ Inspection of Upper Intestinal Tract, Via Natural or Artificial Opening Endoscopic (ICD-10-PCS; CPT 43235; principal; 2022-06-13 09:30)
DX: K21.9 Gastro-esophageal reflux disease without esophagitis (principal); K44.9 Diaphragmatic hernia without obstruction or gangrene
CPT/HCPCS: 43239; 81025; 84703; 88305; 88342; J2704; J7030

== ENCOUNTER → 2023-04-04 09:07 | Outpatient (BNVA) | payer OTHER, SELFPAY | PROVIDERS: Visit Provider Family Medicine Adult Medicine | DX: R73.03 Prediabetes (principal); R63.5 Abnormal weight gain; Z68.41 Body mass index [BMI] 40.0-44.9, adult; K21.9 Gastro-esophageal reflux disease without esophagitis; R05.8 Other specified cough; R09.81 Nasal congestion | CPT/HCPCS: 80053; 80061; 83036; 84443; 85025 ==

== ENCOUNTER → 2023-05-07 18:47 | Outpatient (BNVA) | payer OTHER, SELFPAY | PROVIDERS: Visit Provider Emergency Medicine | DX: J02.9 Acute pharyngitis, unspecified (principal); R11.0 Nausea | CPT/HCPCS: 87880 ==

== ENCOUNTER → 2023-09-26 15:27 | Outpatient (BNVA) | payer OTHER, SELFPAY | PROVIDERS: Visit Provider Family Medicine Adult Medicine | DX: R05.8 Other specified cough (principal); R09.81 Nasal congestion; J30.9 Allergic rhinitis, unspecified | CPT/HCPCS: 82785; 86003 ==

== ENCOUNTER → 2025-04-13 09:14 | Outpatient (BNVA) | payer OTHER, SELFPAY | PROVIDERS: Visit Provider Family Medicine | DX: E78.5 Hyperlipidemia, unspecified (principal); R73.03 Prediabetes; E03.9 Hypothyroidism, unspecified; Z86.39 Personal history of other endocrine, nutritional and metabolic disease | CPT/HCPCS: 80053; 80061; 83036; 84439; 84443; 85025; 86376 ==

== ENCOUNTER 2025-04-15 15:33 | Outpatient (CLI) | payer OTHER, SELFPAY ==
[2025-04-15 16:23] LABS: Hematocrit 24.0 % (36-47); Mean Corpuscular HGB Conc 24.6 g/dL (30-55); Mean Corpuscular Hemoglobin 13.9 pg (27-33); Mean Corpuscular Volume 56.7 fl (85-98); Nucleated Red Blood Cells % 0 %; Platelet Count 518 10^3/cmm (157-399); Red Blood Count 4.23 10^6/uL (3.85-5.65); White Blood Count 8.59 10^3/uL (3.29-11.43)
[2025-04-15 17:10] LABS: Hemoglobin 5.90 g/dL (11.27-16.99)
[2025-04-15 17:12] LABS: Slide Review Slide Review Perform
[2025-04-15 17:17] LABS: Ferritin 8 ng/mL (15-150); Iron 14 ug/dL (37-145); Total Iron Binding Capacity 479 mcg/dl; Unsaturated Iron Binding 465 ug/dL (112-347)
== END 2025-04-15 15:34 | disposition home or self-care (01) ==
LOC: LAB 15:36
PROVIDERS: PCP Family Medicine; Visit Provider Family Medicine
DX: R73.03 Prediabetes (principal); D64.89 Other specified anemias
CPT/HCPCS: 36415; 80503; 82728; 83540; 83550; 85025

== ENCOUNTER 2025-04-15 17:50 | Emergency (ER) | payer OTHER, SELFPAY ==
[2025-04-15] VITALS (10 sets, daily range): BP systolic 114–161; BP diastolic 71–106; PULSE 85–97; RESP 15–22; TEMP 36.6–36.9; O2SAT 98–100; BMI 43.4
--- NOTE | 2025-04-15 18:09 | ED_ITS ---
HPI - Recheck/Abnormal Lab/Rx General: Chief Complaint: Recheck/Abnormal Lab/Rx Stated Complaint: abn labs (sent by Paul) Time Seen by Provider: 04/15/25 18:00 History of Present Illness: 39-year-old female with a history of thy roiditis who presents the emergency room with anemia. She was sent from Dr. Amor's office for transfusion. He spoke with me before. He request that she be transfused and then sent home and he will continue workup. She has no symptoms other than some mild fatigue at this point. Difficulty in getting transfusions on Saturday and her hemoglobin is pretty low at 5.9 today. Related Data Home Medications ?Medication ?Instructions ?Recorded ?Confirmed multivitamin 1 tab PO DAILY 07/25/2110/02 Previous Rx's ?Medication ?Instructions ?Recorded albuterol sulfate 90 mcg/actuation 2 puff inhalation Q 6H PRN 04/13/24 aerosol inhaler shortness of breath or wheez ing #8.5 grams budesonide-formoterol HFA 80 2 puff inhalation Q12H #1 0.2 grams 04/13/24 mcg-4.5 mcg/actuation aerosol inhaler (Symbicort) pantoprazole 20 mg tablet,delayed 20 mg PO .qhs #90 ta bs 04/13/25 release spironolactone 50 mg tablet See Rx Instructions PO QAM #60 tabs 04/13/25 levothyroxine 50 mcg tablet 50 mcg PO DAILY #60 tabs 1 06/15/24 (Synthroid) Allergies Allergy/AdvReac Type Severity Reaction Status Date / Time amoxicillin Allergy ALGY-Hives Verified 04/13/25 08:07 Review of Systems Narrative: Constitutional symptoms: Negative except as documented in HPI. Skin symptoms: Negative except as documented in HPI. Eye symptoms: Negative except as documented in HPI. ENMT symptoms: Negative except as documented in HPI. Respiratory symptoms: Negative except as documented in HPI. Cardiovascular symptoms: Negative except as documented in HPI. Gastrointestinal symptoms: Negative except as documented in HPI. Genitourinary symptoms: Negative except as documented in HPI. Musculoskeletal symptoms: Negative except as documented in HPI. Neurologic symptoms: Negative except as documented in HPI. Psychiatric symptoms: Negative except as documented in HPI. Endocrine symptoms: Negative except as documented in HPI. PFSH ED PFSH: Medical History (Updated 04/15/25 @ 20:26 by Kyra Francois MD) Moderate persistent asthma Asthma Allergic rhinitis due to allergen Body mass index (BMI) of 40.0 to 49.9 Hypothyroidism Dyslipidemia (high LDL; low HDL) Cough with congestion of paranasal sinus Weight gain, abnormal Prediabetes Helicobacter pylori gastritis No pertinent past medical history Denies diabetes, asthma, hypertension, seizures, DVT/PE PCP: None GERD (gastroesophageal reflux disease) PCOS (polycystic ovarian syndrome) Diagnosed at the age of 18 with irregular cycles and hirsutism. Has been on Metformin and pills in the past for contraception. Surgical History Status post tubal ligation 06/14/2021---bilateral total salpingectomy performed at time of repeat C- section by Dr. Ely at [facility] Pathology showed----bilateral fallopian tubes full transection-no malignancy Hx of section x 2 07/2019---emergency low transverse delivery for nonreassuring heart tracing and arrest of dilation by Dr. Pandya at [facility] 06/14/2021---repeat and bilateral total salpingectomy performed by Dr. Ely at [facility] Family History Grandfather Diabetes maternal Heart disease Maternal Grandmother Hypertension Maternal Cancer Cervical cancer Mother Thyroid disease Denies family history of Colon cancer Hypercholesteremia Breast cancer Uterine cancer Stroke Social History Smoking and tobacco/nicotine status: never used tobacco/nicotine Alcohol intake: current Alcohol intake frequency: holidays/special occasions only Substance/Drug Use: never Physical Exam Narrative: EXAM NARRATIVE: General: Alert, no acute distress. Skin: Warm, dry. Head: Normocephalic, atraumatic. Neck: Supple, trachea midline. Eye: Extraocular movements are intact. Ears, nose, mouth and throat: mucosa moist. Cardiovascular: Regular, Normal peripheral perfusion. Respiratory: Lungs are clear to auscultation, respirations are non-labored, breath sounds are equal, Symmetrical chest wall expansion. Gastrointestinal: Soft, Nontender, Non distended Musculoskeletal: Normal ROM, no deformity. Neurological: Alert and oriented, No focal neurological deficit observed. Psychiatric: Cooperative, appropriate mood & affect. Course Vital Signs: Vital signs: Vital Signs Temperature 98.4 F 04/15/25 20:20 Pulse Rate 90 04/15/25 20:20 Respiratory Rate 16 04/15/25 20:20 Blood Pressure 140/106 04/15/25 20:20 Pulse Oximetry 100 04/15/25 20:20 Oxygen Delivery Me thod Room Air 04/15/25 18:10 MDM - Recheck/Abnormal Lab/Rx Medical Decision Making Medical decision making: Differential diagnosis including but not limited to and based on the above HPI, review of systems and physical exam: Patient already has labs. He is being transfused. Type and screen are being ordered. Along with blood orders placed to evaluate differential diagnosis based on the above differential, HPI and physical exam Lab Review: Laboratory results were reviewed and interpreted by myself the emergency room physician. Reviewed lab from earlier today. Hemoglobin is 5.9. I reviewed the patient's medical record. Reexamination: Patient remained stable. No increased work of breathing. No altered mental status. No focal motor deficits. Assessment and plan: Anemia ?2 units PRBCs transfused - Discharged home - Discussed plan with patient. Answered any questions. - Evaluation and treatment of this problem were appropriate in the emergency setting. Lab Data Laboratory Results [facility] Path Cons Sent for review 04/15/25 15:48 Blood Type O Positive 04/15/25 18:27 Rho(D) Type Rh positive 04/15/25 18:27 Antibody Screen Negative 04/15/25 18:27 Crossmatch See Detail 04/15/25 18:27 No radiology studies performed this visit Discharge Plan Discharge Patient Disposition: Home Clinical Impression: Anemia Condition: Stable Prescriptions: No Action multivitamin Tablet 1 tab PO DAILY pantoprazole 20 mg tablet,delayed release (DR/EC) 20 mg PO .qhs Qty: 90 1RF spironolactone 50 mg tablet See Rx Instructions PO QAM Qty: 60 0RF Rx Instructions: take 1/2 tablet x 7 days then full tablet q AM albuterol sulfate 90 mcg/actuation HFA aerosol inhaler 2 puff inhalation Q6H PRN (Reason: shortness of breath or wheezing) Qty: 8.5 1RF budesonide-formoterol [Symbicort] 80-4.5 mcg/actuation HFA aerosol inhaler 2 puff inhalation Q12H Qty: 10.2 0RF levothyroxine [Synthroid] 50 mcg tablet 50 mcg PO DAILY Qty: 60 0RF Discharge Orders: Discharge ED (Routine); Ordered 04/15/25 Ordered By: Kyra Francois Referrals: Gerber Miller MD [Primary Care Provider, Family Practice] Referral Note: Please follow-up with Dr. Miller as he instructs. Discharge Diet: Usual diet Discharge Activity: Increase activity as tolerated Patient Instructions: Opioid Safety, Pain Management, Patient Portal & [place] Instructions Activity Restrictions/Additional Instructions: Thank you for choosing [facility] for your healthcare needs today. You have been screened and evaluated and felt safe for discharge. Health conditions do change or evolve sometimes and as such it is important that you follow up with your Primary Doctor to be re checked, 3-5 days is a general good time frame for follow up. You are always welcome to return to the ED for re assessment if your symptoms are worsening or you have new concerns Print Language: [place] Coding Level of Care Code ED Ferry[employer] Cable for Shelia Schuler
[2025-04-15 18:22] LABS: LAB Peripheral Smear Sent for Review
[2025-04-16 00:34] VITALS: BP 129/100; PULSE 85; RESP 22; O2SAT 100
== END 2025-04-16 00:30 | disposition home or self-care (01) ==
PROVIDERS: Emergency Provider Emergency Medicine; PCP Family Medicine
DX: D64.9 Anemia, unspecified (principal); E78.5 Hyperlipidemia, unspecified
CPT/HCPCS: 36415; 36430; 86850; 86900; 86920; 99283; P9016

== ENCOUNTER 2025-04-26 08:00 | Oncology outpatient (recurring) (ONCR) | payer OTHER, SELFPAY ==
[2025-04-16] MEDS: iron sucrose 200 MG/100 ML BAG IV (10:56)
[2025-04-16 11:31] VITALS: BP 135/82; PULSE 88; RESP 16; TEMP 36.6; O2SAT 99
[2025-04-19 08:13] VITALS: BP 124/78; PULSE 74; TEMP 36.2; O2SAT 97
[2025-04-19] MEDS: iron sucrose 200 MG/100 ML BAG IV (08:29)
[2025-04-19 09:07] VITALS: BP 136/76; PULSE 77; TEMP 36.1; O2SAT 99
[2025-04-19 10:33] LABS: Hematocrit 34.5 % (36-47); Hemoglobin 9.30 g/dL (11.27-16.99); Mean Corpuscular HGB Conc 27.0 g/dL (30-55); Mean Corpuscular Hemoglobin 17.1 pg (27-33); Mean Corpuscular Volume 63.5 fl (85-98); Nucleated Red Blood Cells % 0 %; Platelet Count 460 10^3/cmm (157-399); Red Blood Count 5.43 10^6/uL (3.85-5.65); White Blood Count 10.45 10^3/uL (3.29-11.43)
[2025-04-19 10:47] LABS: Add RBC Morph Yes; Hypochromasia 2+; Polychromasia 1+; Slide Review Slide Review Perform
[2025-04-19 10:48] LABS: Anisocytosis 2+; Microcytosis 3+; Pathology Refferal No; Poikilocytosis 1+; RBC Morph Comp Yes
[2025-04-21 08:11] VITALS: BP 130/77; PULSE 86; RESP 17; TEMP 36.1; O2SAT 98
[2025-04-21] MEDS: iron sucrose 200 MG/100 ML BAG IV (08:30)
[2025-04-21 09:05] VITALS: BP 142/78; PULSE 88; RESP 16; TEMP 36.6; O2SAT 98
[2025-04-23 08:09] VITALS: BP 118/81; PULSE 86; RESP 16; TEMP 36.1; O2SAT 99
[2025-04-23] MEDS: iron sucrose 200 MG/100 ML BAG IV (08:16)
[2025-04-26 08:33] VITALS: BP 132/62; PULSE 84; TEMP 36.3; O2SAT 97
[2025-04-26] MEDS: iron sucrose 200 MG/100 ML BAG IV (08:47)
== END 2025-05-09 23:59 | disposition home or self-care (01) ==
PROVIDERS: PCP Family Medicine; Visit Provider Family Medicine
DX: D64.9 Anemia, unspecified; Z79.899 Other long term (current) drug therapy; Z53.9 Procedure and treatment not carried out, unspecified reason
CPT/HCPCS: 36415; 85025; 96365; J1756

== ENCOUNTER → 2025-05-27 09:22 | Outpatient (BNVA) | payer OTHER, SELFPAY | PROVIDERS: PCP Family Medicine; Visit Provider Family Medicine | DX: D50.9 Iron deficiency anemia, unspecified (principal); E03.9 Hypothyroidism, unspecified; Z86.39 Personal history of other endocrine, nutritional and metabolic disease | CPT/HCPCS: 80053; 82728; 83550; 84439; 84443; 85025; 86376 ==